=== PATIENT | female | born 1970 | race Hispanic/Latino ===

== ENCOUNTER 2018-02-09 07:40 | Day surgery (SDC) | payer OTHER ==
[2018-01-18 12:49] VITALS: BMI 43.4
[2018-02-09] MEDS ORDERED: Morphine 10 mg/5 ml Oral Soln PO PRN (08:19)
[2018-02-09] MEDS ORDERED: Dextrose 5%/0.45% NS 1,000 ML IV SCH (08:30)
[2018-02-09] MEDS ORDERED: Lidocaine Hydrochloride 5 ML INJ ONE (09:27)
[2018-02-09] MEDS ORDERED: Propofol 10 mg/ml Inj (20 ML) ONE (09:27)
[2018-02-09] MEDS ORDERED: Succinylcholine Chloride 20 mg/ml Syr (5 ml) IV ONE (09:27)
[2018-02-09] MEDS: ceFAZolin 1 gm in NS 1 GM/100 ML BAG IVPB ONE ×2 (09:29→09:35)
[2018-02-09] MEDS ORDERED: Midazolam 2 MG/2 ML VIAL ONE (09:34)
[2018-02-09] MEDS ORDERED: HYDROmorphone 0.5 mg/0.5 ml ISec IVP PRN (10:04)
[2018-02-09] MEDS ORDERED: Lactated Ringer's 1,000 ML IV SCH (10:15)
[2018-02-09 11:51] VITALS: BP 151/70; PULSE 85; RESP 18; TEMP 97; O2SAT 100
--- NOTE | 2018-02-09 19:27 | OP ---
PROCEDURE DATE: 02/09/2018 PREOPERATIVE DIAGNOSIS: Chronic tonsillitis. POSTOPERATIVE DIAGNOSIS: Chronic tonsillitis. PROCEDURE: Tonsillectomy. SIGNIFICANT FINDINGS: 2+ tonsils. DESCRIPTION OF PROCEDURE: The patient was brought into room, placed in supine position. Anesthesia was initiated through an ET tube. The patient was draped in usual manner. Mouth gag was placed in the oral cavity, opened, suspended on towels over patient's chest. The right tonsil was grabbed and pulled medially. Incision was made in the anterior tonsillar pillar using coblation. Dissection was done between tonsil and tonsillar fossa using coblation until the tonsil was removed. Bleeding was controlled using coblation. Next, the other tonsil was grabbed and pulled medially. Incision was made in the anterior tonsillar pillar using coblation. Dissection was done between tonsil and tonsillar fossa using coblation until the tonsil was removed. Bleeding was controlled using coblation. Both tonsillar beds were rubbed vigorously with coblation wand. No bleeding was noted. Mouth gag was let down for 30 seconds, put back up, no bleeding was noted. The mouth gag was taken down and removed. The patient was taken off anesthesia and taken to recovery room in stable manner. Son Bosch MD
== END 2018-02-09 12:39 | disposition home or self-care (01) ==
LOC: C.SDS 07:40
PROVIDERS: ATTEND Otolaryngology
DX: J35.01 Chronic tonsillitis (principal)
CPT/HCPCS: 42826; 82948; 88304; J0690; J1100; J2250; J2704; J3010